=== PATIENT | male | born 1985 | race American Indian/Alaskan Native ===

== ENCOUNTER 2020-06-19 20:28 | Emergency (ER) | payer SELFPAY ==
[2020-06-20 01:00] VITALS: BP 128/75
--- NOTE | 2020-06-20 01:34 | Cat Scan Report ---
CT head without contrast INDICATION : Patient complains of a headache x 3 days.. TECHNIQUE: Axial imaging performed from the skull apex through the skull base without the use of con trast. All CT scans at this location are performed using CT dose reduction for ALARA by means of aut omated exposure control. COMPARISON: None FINDINGS: Parenchyma: No acute intracranial hemorrhage or parenchymal abnormality. Ventricles: Ventricles are normal in size and appear symmetric. Soft tissues: Soft tissues including the orbits appear normal. Bones: No acute osseous abnormality. Sinuses: Sinuses and mastoid air cells are clear. IMPRESSION: No acute abnormality. Signer Name: Charlie Kuhn MD Signed: 06/20/2020 1:29 AM Workstation Name: [id number]
--- NOTE | 2020-06-20 02:37 | Emergency Department Report ---
ED Headache HPI - General Chief Complaint: Headache Stated Complaint: PRESSURE ON BRAIN Time Seen by Provider: 06/20/20 01:00 - History of Present Illness Initial Comments: 35-year-old F Luxembour[place] male is noted past medical history presents emerged department complaining of a 3-day history of occipital headache dull and throbbing in nature. Reports no fever, chills, sweats, no blurred vision, no presyncope, no change in hearing no nausea, no vomiting Quality: mild, moderate Head Injury Location: occipital Recent Head Trauma: no recent headache/trauma Associated Symptoms: denies: fatigue, fever/chills, nausea/vomiting, nasal congestion, nasal drainage, sinus infection, stiff neck Allergies/Adverse Reactions: Allergies No Known Allergies Allergy (Verified 06/19/20 21:26) ED Review of Systems ROS: Stated complaint: PRESSURE ON BRAIN Other details as noted in HPI Comment: All other systems reviewed and negative ED Past Medical Hx - Past Medical History Hx Asthma: Yes (as child) - Surgical History Past Surgical History?: No - Social History Smoking Status: Never Smoker Substance Use Type: Marijuana ED Physical Exam - General Limitations: No Limitations General appearance: alert, in no apparent distress - Head Head exam: Present: atraumatic, normocephalic - Eye Eye exam: Present: normal appearance, PERRL, EOMI, scleral icterus, conjunctival injection. Absent: nystagmus Pupils: Present: other (Negative funduscopic examination) - ENT ENT exam: Present: normal exam, normal orophraynx, mucous membranes moist - Neck Neck exam: Present: normal inspection, full ROM - Respiratory Respiratory exam: Present: normal lung sounds bilaterally. Absent: respiratory distress - Cardiovascular Cardiovascular Exam: Present: regular rate, normal rhythm. Absent: systolic murmur, diastolic murmur, rubs, gallop - GI/Abdominal GI/Abdominal exam: Present: soft, normal bowel sounds - Rectal Rectal exam: Present: deferred - Extremities Exam Extremities exam: Present: normal inspection - Back Exam Back exam: Present: normal inspection - Neurological Exam Neurological exam: Present: alert, oriented X3, CN II-XII intact, normal gait, motor sensory deficit, reflexes normal - Psychiatric Psychiatric exam: Present: normal affect, normal mood - Skin Skin exam: Present: warm, dry, intact, normal color. Absent: rash ED Course Vital Signs 06/19/20 06/20/20 21:22 00:58 Temperature 98.0 F 98.2 F Pulse Rate 67 63 Respiratory 16 18 Rate Blood Pressure 120/40 Blood Pressure 128/75 [Left] O2 Sat by Pulse 98 99 Oximetry ED Medical Decision Making - Radiology Data Radiology results: report reviewed [facility] [address] [place] [address] Cat Scan Report Signed Patient: HERMILO HUTCHISON MR#: [id number] : 1985 Acct:[id number] Age/Sex: 35 / M ADM Date: 06/19/20 Loc: ED Attending Dr: Ordering Physician: SABINO RENE Date of Service: 06/20/20 Procedure(s): CT head/brain wo con Accession Number(s): [id number] cc: SABINO RENE CT head without contrast INDICATION : Patient complains of a headache x 3 days.. TECHNIQUE: Axial imaging performed from the skull apex through the skull base without the use of contrast. All CT scans at this location are performed using CT dose reduction for ALARA by means of automated exposure control. COMPARISON: None FINDINGS: Parenchyma: No acute intracranial hemorrhage or parenchymal abnormality. Ventricles: Ventricles are normal in size and appear symmetric. Soft tissues: Soft tissues including the orbits appear normal. Bones: No acute osseous abnormality. Sinuses: Sinuses and mastoid air cells are clear. IMPRESSION: No acute abnormality. Signer Name: Charlie Kuhn MD Signed: 06/20/2020 1:29 AM Workstation Name: [id number] Transcribed By: JW Dictated By: Charlie Kuhn MD Electronically Authenticated By: Charlie Kuhn MD Signed Date/Time: 06/20/20128 DD/ 8 TD/TT: - Medical Decision Making This patient presents with a headache most consistent with headache. Differential diagnosis includes migraine versus tension type headache. No headache red flags. Neurologic exam without evidence of meningismus, focal neurologic findings.Based on the patient's history and physical there is very low clinical suspicion for significant intracranial pathology. The headache was NOT sudden onset, NOT maximal at onset, there are NO neurologic findings, the patient does NOT have a fever, the patient does NOT have any jaw claudication, the patient does NOT endorse a clotting disorder, patient DENIES any trauma or eye pain and the headache is NOT associated with dizziness or ataxia. Presentation not consistent with acute intracranial bleed to include SAH (lack of risk factors, headache history). Presentation not consistent with acute [employer] infection to include meningitis or brain abscess, Temporal arteritis unlikely, as is acute angle closure glaucoma given history and physical findings. Presentation not consistent with other acute, emergent causes of headache at this time. Plan to treat symptomatically with pain medication. No indication for imaging/LP at this time. Plan: pain medication, CT brain normal, serial reassessment Critical care attestation.: If time is entered above; I have spent that time in minutes in the direct care of this critically ill patient, excluding procedure time. ED Disposition Clinical Impression: Cephalgia Disposition: DC-01 TO HOME OR SELFCARE Is pt being admited?: No Does the pt Need Aspirin: No Condition: Stable Instructions: Tension Headache, Adult, Migraine Headache Additional Instructions: CT scan was normal Referrals: PRIMARY MD AMBROCIO [Primary Care Provider] - 3-5 Days MUSHTAQ DÍAZ MD [Staff Physician] - 3-5 Days
== END 2020-06-20 02:35 | disposition home or self-care (01) ==
LOC: ED 20:28
DX: R51.9 Headache, unspecified (principal); J45.909 Unspecified asthma, uncomplicated; F12.90 Cannabis use, unspecified, uncomplicated; Z79.899 Other long term (current) drug therapy
CPT/HCPCS: 70450

== ENCOUNTER 2020-08-07 07:36 | Emergency (ER) | payer SELFPAY ==
[2020-08-07 07:48] VITALS: BP 138/71
--- NOTE | 2020-08-07 07:55 | Emergency Department Report ---
ED Chest Pain HPI - General Chief Complaint: Chest Pain Stated Complaint: CHEST PAIN PUI?: No Time Seen by Provider: 08/07/20 07:51 Source: patient Mode of arrival: Ambulatory Limitations: No Limitations - History of Present Illness Initial Comments: Patient is a 35-year-old -[place] male that comes to the emergency room complaining of left-sided dull chest pain that has occurred off and on for what he reports some time. However over the last 3 days it concerned him so he came to the ER. He denies nausea vomiting diaphoresis shortness of breath or other complaints. He denies abdominal pain or back pain. 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 He is ambulatory nontoxic and [id number] on exam. EMR reviewed and patient was here about a month ago for headache and had a head CT that was normal. Patient has a history of alcohol and marijuana use but he states it has been months since he has used either. Patient endorses some anxiety. Patient states that the pain sometimes gets better worse when he moves. He states but this is not consistent. On exam in triage I am able to reproduce the pain. Patient has no family history of coronary disease. I have a low index of suspicion for ACS. His blood pressure is normal. MD Complaint: chest pain -: Gradual, days(s) Pain Location: left chest Severity: mild Quality: aching Consistency: intermittent Improves With: nothing Worsens With: movement (Sometimes) Treatments Prior to Arrival: none Aspirin use within the Past 7 Days: (0) No - Related Data Allergies Allergy/AdvReac Type Severity Reaction Status Date / Time No Known Allergies Allergy Verified 06/19/20 21:26 Heart Score - HEART Score History: Slightly suspicious EKG: Normal Age: < 45 Risk factors: No known risk factors Troponin: < normal limit HEART Score: 0 ED Review of Systems ROS: Stated complaint: CHEST PAIN Other details as noted in HPI Constitutional: denies: chills, fever Eyes: denies: eye pain, eye discharge, vision change ENT: denies: ear pain, throat pain Respiratory: denies: cough, shortness of breath, wheezing Cardiovascular: denies: chest pain, palpitations Endocrine: no symptoms reported Gastrointestinal: denies: abdominal pain, nausea, diarrhea Genitourinary: denies: urgency, dysuria Musculoskeletal: denies: back pain, joint swelling, arthralgia Skin: denies: rash, lesions Neurological: denies: headache, weakness, paresthesias Psychiatric: denies: anxiety, depression Hematological/Lymphatic: denies: easy bleeding, easy bruising ED Past Medical Hx - Past Medical History Previous Medical History?: Yes Hx Asthma: Yes (as child) - Surgical History Past Surgical History?: No - Family History Family history: no significant - Social History Smoking Status: Former Smoker Substance Use Type: None ED Physical Exam - General Limitations: No Limitations General appearance: alert, in no apparent distress - Head Head exam: Present: atraumatic, normocephalic - Eye Eye exam: Present: normal appearance - ENT ENT exam: Present: mucous membranes moist - Neck Neck exam: Present: normal inspection - Respiratory Respiratory exam: Present: normal lung sounds bilaterally. Absent: respiratory distress - Cardiovascular Cardiovascular Exam: Present: regular rate, normal rhythm. Absent: systolic murmur, diastolic murmur, rubs, gallop - GI/Abdominal GI/Abdominal exam: Present: soft, normal bowel sounds - Rectal Rectal exam: Present: deferred - Extremities Exam Extremities exam: Present: normal inspection - Back Exam Back exam: Present: normal inspection - Neurological Exam Neurological exam: Present: alert, oriented X3 - Psychiatric Psychiatric exam: Present: normal affect, normal mood - Skin Skin exam: Present: warm, dry, intact, normal color. Absent: rash ED Course Vital Signs 08/07/20 08/07/20 07:44 07:47 Temperature 98.4 F Pulse Rate 68 Respiratory 16 Rate Blood Pressure 138/71 O2 Sat by Pulse 98 Oximetry MAYRA score - Mayra Score Age > 65: (0) No Aspirin use within the Past 7 Days: (0) No 3 or more CAD Risk Factors: (0) No 2 or more Angina events in past 24 hrs: (0) No Known CAD with more than 50% Stenosis: (0) No Elevated Cardiac Markers: (0) No ST Deviation Greater than 0.5mm: (0) No MAYRA Score: 0 ED Medical Decision Making - Lab Data Result diagrams: 08/07/20 08:09 08/07/20 08:09 - EKG Data -: EKG Interpreted by Oh EKG shows normal: sinus rhythm Rate: normal - EKG Data When compared to previous EKG there are: no significant change Interpretation: no acute changes - Radiology Data Radiology results: report reviewed, image reviewed nap - Medical Decision Making Lab Results 08/07/20 08/07/20 Range/Units 08:09 08:09 WBC 7.9 (4.5-11.0) K/mm3 RBC 5.12 H (3.65-5.03) M/mm3 Hgb 15.6 H (11.8-15.2) gm/dl Hct 46.1 H (35.5-45.6) % MCV 90 (84-94) fl MCH 31 (28-32) pg MCHC 34 (32-34) % RDW 13.7 (13.2-15.2) % Plt Count 229 (140-440) K/mm3 Troponin T < 0.010 (0.00-0.029) ng/mL Lab Results 08/07/20 08/07/20 Range/Units 08:09 08:09 WBC 7.9 (4.5-11.0) K/mm3 RBC 5.12 H (3.65-5.03) M/mm3 Hgb 15.6 H (11.8-15.2) gm/dl Hct 46.1 H (35.5-45.6) % MCV 90 (84-94) fl MCH 31 (28-32) pg MCHC 34 (32-34) % RDW 13.7 (13.2-15.2) % Plt Count 229 (140-440) K/mm3 Troponin T < 0.010 (0.00-0.029) ng/mL Vital Signs 08/07/20 08/07/20 07:44 07:47 Temperature 98.4 F Pulse Rate 68 Respiratory 16 Rate Blood Pressure 138/71 O2 Sat by Pulse 98 Oximetry Labs, x-ray and EKG noted. Findings of labs and diagnostic studies reviewed with Mr. Phan Patient's lipase was mildly elevated. But he has no pain on palpation of his abdomen. He has no nausea and vomiting. I have discussed with him that he needs to follow-up with primary care and have this repeated. I have explained to him that he should avoid alcohol and fatty foods. I have also explained the patient that he should avoid alcohol. He states that he is not had any alcohol or drugs in about 6 months. LFTs are normal. Patient has no diarrhea. He is taking p.o. without difficulty. I suspect there is a component of anxiety to his complaints. Patient being discharged home with discharge plan of care including PCP follow- up. He has been given a referral. Patient verbalizes understanding of discharge plan. Patient states that he will follow-up with primary care next week to be reevaluated. He understands that if he develops nausea vomiting or severe abdominal pain he should return to the ER. - Differential Diagnosis chest wall pain/acs/anxiety Critical care attestation.: If time is entered above; I have spent that time in minutes in the direct care o f this critically ill patient, excluding procedure time. ED Disposition Clinical Impression: Chest wall pain, Elevated lipase Disposition: - TO HOME OR SELFCARE Is pt being admited?: No Does the pt Need Aspirin: No Condition: Stable Instructions: Nonspecific Chest Pain, Adult, Chest Pain (ED) Additional Instructions: STAY WELL HYDRATED MOTRIN OR TYLENOL FOR PAIN DIET AND ACTIVITY TOLERATED FOLLOW UP WITH PCP REFERRAL BELOW Referrals: MUSHTAQ DÍAZ MD [Staff Physician] - 3-5 Days Forms: Work/School Release Form(ED) Time of Disposition: 08:55
--- NOTE | 2020-08-07 08:17 | XRay Report ---
CHEST 2 VIEWS INDICATION: chest pain. COMPARISON: None FINDINGS: Support devices: None. Heart: Within normal limits. Lungs/pleura: No acute air space or interstitial disease. No pneumothorax. Additional findings: None. IMPRESSION: No acute findings. Signer Name: Shamar Brennan Jr, MD Signed: 08/07/2020 8:12 AM Workstation Name: [id number]
[2020-08-07 08:36] LABS: Hematocrit 46.1 % (35.5-45.6); Hemoglobin 15.6 gm/dl (11.8-15.2); Mean Corpuscular HGB Conc 34 % (32-34); Mean Corpuscular Volume 90 fl (84-94); Platelet Count 229 K/mm3 (140-440); Red Blood Count 5.12 M/mm3 (3.65-5.03); Red Cell Distribution Width 13.7 % (13.2-15.2)
[2020-08-07 08:55] LABS: Alanine Aminotransferase 37 units/L (7-56); Albumin 4.5 g/dL (3.9-5); BUN/Creatinine Ratio 12; Blood Urea Nitrogen 12 mg/dL (9-20); Calcium 9.5 mg/dL (8.4-10.2); Hemolysis Index 12
== END 2020-08-07 08:55 | disposition home or self-care (01) ==
LOC: ED 07:36
DX: R74.8 Abnormal levels of other serum enzymes (principal); R07.89 Other chest pain; J45.909 Unspecified asthma, uncomplicated; Z87.891 Personal history of nicotine dependence
CPT/HCPCS: 36415; 71046; 80053; 83690; 84484; 85027; 93005